=== PATIENT | female | born 1950 | race Caucasian/White ===

== ENCOUNTER → 2018-03-24 | Outpatient (CLI) | payer MEDICARE, OTHER ==
--- NOTE | 2018-03-24 15:59 | CT ---
EXAMINATION TYPE: CT abdomen pelvis wo con DATE OF EXAM: 03/24/2018 COMPARISON: 08/14/2015 HISTORY: Follow up scan CT DLP: 870 mGycm Examination of the solid and hollow viscera is limited given the lack of contrast. FINDINGS: LUNG BASES: No evidence for nodule. No evidence for infiltrate. LIVER/GB: The gallbladder is unremarkable. No space-occupying hepatic lesion. PANCREAS: No pancreatic mass identified. No inflammatory process seen. SPLEEN: No evidence for splenomegaly. No intrasplenic lesions seen. ADRENALS: 2.7 cm left adrenal nodule persists. KIDNEYS: There is evidence of right-sided nephrectomy. There is also cystectomy changes noted. Right lower quadrant ileostomy. Left kidney is free of mass. No hydronephrosis or nephrolithiasis. BOWEL: Appendix has a normal appearance. No evidence of bowel obstruction. No inflammatory process. Lymph nodes: No evidence for adenopathy greater than 1 cm. Abdominal aorta: Atheromatous changes seen. No evidence for aneurysm. Genital organs: No significant abnormality. Other: Fat-containing anterior abdominal wall hernia. IMPRESSION: 1. Post stable postoperative changes of right-sided nephrectomy and cystectomy. No evidence for recur rent or residual mass. 2. Anterior abdominal wall fat-containing hernia is stable. 3. Left adrenal adenoma unchanged.
== END | disposition home or self-care (01) ==
LOC: RADCTMAIN 12:22
PROVIDERS: ATTEND Urology
DX: Z08 Encounter for follow-up examination after completed treatment for malignant neoplasm (principal); D35.02 Benign neoplasm of left adrenal gland; K43.9 Ventral hernia without obstruction or gangrene; Z90.5 Acquired absence of kidney; Z90.89 Acquired absence of other organs; Z90.6 Acquired absence of other parts of urinary tract
CPT/HCPCS: 74176

== ENCOUNTER 2018-07-28 19:58 | Observation (INO) | payer MEDICARE, OTHER ==
[2018-07-28] MEDS ORDERED: IPRATROPIUM-ALBUTEROL 3 ML NEB INHALATION STA ×2 (20:41→22:05)
[2018-07-28] MEDS ORDERED: SODIUM CHLORIDE 0.9% 500 ML 500 ML IV STA (20:41)
[2018-07-28] MEDS ORDERED: SODIUM CHLORIDE 0.9% 1,000 ML IV STA (20:41)
[2018-07-28 21:17] LABS: Basophils % (A) 0 %; Eosinophils # (A) 0.3 k/uL (0-0.7); Eosinophils % (A) 2 %; HCT 41.1 % (34.0-46.0); HGB 13.2 gm/dL (11.4-16.0); Lymphocytes # (A) 1.5 k/uL (1.0-4.8); Lymphocytes % (A) 12 %; MCH 28.7 pg (25.0-35.0); MCHC 32.1 g/dL (31.0-37.0); MCV 89.4 fL (80.0-100.0); Mean Platelet Volume 6.8; Monocytes # (A) 0.9 k/uL (0-1.0); Monocytes % (A) 7 %; Neutrophils # (A) 10.1 k/uL (1.3-7.7); Neutrophils % (A) 78 %; Platelet Count 364 k/uL (150-450); RDW 14.2 % (11.5-15.5); WBC 13.1 k/uL (3.8-10.6)
--- NOTE | 2018-07-28 21:20 | XR ---
EXAMINATION TYPE: XR chest 2V DATE OF EXAM: 07/28/2018 COMPARISON: 03/14/2012 HISTORY: Short of breath and cough TECHNIQUE: Frontal and lateral views of the chest are obtained. FINDINGS: There is no heart failure nor confluent pneumonic infiltrate. Costophrenic angles are corbin r. There are chest leads. Heart size is normal. Bony thorax is intact. IMPRESSION: No active cardiopulmonary disease. No change.
[2018-07-28 21:30] LABS: Calcium 9.6 mg/dL (8.4-10.2); INR 0.8 (<1.2); Magnesium 1.8 mg/dL (1.6-2.3); Partial Thromboplastin Time 25.2 sec (22.0-30.0); Potassium 4.8 mmol/L (3.5-5.1); Prothrombin Time 9.4 sec (9.0-12.0); Total Bilirubin 0.5 mg/dL (0.2-1.3); Total Protein 6.7 g/dL (6.3-8.2)
--- NOTE | 2018-07-28 21:43 | ED ---
URI HPI - General Chief Complaint: Upper Respiratory Infection Stated Complaint: Heart palps Time Seen by Provider: 07/28/18 20:34 Source: patient, RN notes reviewed, old records reviewed Mode of arrival: ambulatory Limitations: no limitations - History of Present Illness Initial Comments: This is a 5-year-old female the ER for evaluation. Patient resents today for evaluation shortness of breath history of smoking and COPD. Patient has had symptoms for a few weeks now. She has had prior evaluation and treatment with no improvement. No travel history no sick contacts no chest pain. Patient occasionally does have palpitations. Significant shortness of breath with exertion. MD Complaint: cough, nasal congestion -: week(s) Severity: moderate Severity scale (1-10): 5 Consistency: constant Improves With: OTC cold medicine Worsens With: activity Context: sick contacts Associated Symptoms: nasal congestion, cough, shortness of breath Treatments Prior to Arrival: none - Related Data Previous Rx's Medication Instructions Recorded Dexamethasone 0.75 mg PO DAILY #12 tablet 12/15/14 Diazepam [Valium] 5 mg PO BID #6 tab 12/15/14 Hydrocodone/Acetaminophen [Snook 1 each PO Q6HR PRN #30 tab 12/15/14 5-325] Allergies Allergy/AdvReac Type Severity Reaction Status Date / Time codeine Allergy Unknown Verified 07/28/18 20:31 Sulfa (Sulfonamide Allergy Unknown Verified 07/28/18 20:31 Antibiotics) Review of Systems ROS Statement: Those systems with pertinent positive or pertinent negative responses have been documented in the HPI. ROS Other: All systems not noted in ROS Statement are negative. Past Medical History Past Medical History: Cancer Additional Past Medical History / Comment(s): bladder cancer, urostomy History of Any Multi-Drug Resistant Organisms: None Reported Past Surgical History: Hysterectomy Additional Past Surgical History / Comment(s): bladder, nephrectomy Past Psychological History: No Psychological Hx Reported Smoking Status: Current every day smoker Past Alcohol Use History: None Reported Past Drug Use History: None Reported General Exam Limitations: no limitations General appearance: alert, in no apparent distress Head exam: Present: atraumatic, normocephalic, normal inspection Eye exam: Present: normal appearance, PERRL, EOMI. Absent: scleral icterus, conjunctival injection, periorbital swelling ENT exam: Present: normal exam, mucous membranes moist Neck exam: Present: normal inspection. Absent: tenderness, meningismus, lymphadenopathy Respiratory exam: Present: normal lung sounds bilaterally, wheezes, accessory muscle use, decreased breath sounds, prolonged expiratory. Absent: respiratory distress, rales, rhonchi, stridor Cardiovascular Exam: Present: regular rate, normal rhythm, normal heart sounds. Absent: systolic murmur, diastolic murmur, rubs, gallop, clicks GI/Abdominal exam: Present: soft, normal bowel sounds. Absent: distended, tenderness, guarding, rebound, rigid Extremities exam: Present: normal inspection, full ROM, normal capillary refill. Absent: tenderness, pedal edema, joint swelling, calf tenderness Back exam: Present: normal inspection Neurological exam: Present: alert, oriented X3, CN II-XII intact Psychiatric exam: Present: normal affect, normal mood Skin exam: Present: warm, dry, intact, normal color. Absent: rash Course Vital Signs 07/28/18 07/28/18 07/28/18 20:27 21:10 21:19 Temperature 98.3 F Pulse Rate 83 77 76 Respiratory 16 Rate Blood Pressure 135/83 O2 Sat by Pulse 98 Oximetry 07/28/18 21:28 Temperature 98.3 F Pulse Rate 78 Respiratory 16 Rate Blood Pressure 162/75 O2 Sat by Pulse 93 L Oximetry - Reevaluation(s) Reevaluation #1: 07/28/18 22:14 Record is reviewed Reevaluation #2: 07/28/18 22:14 Breathing treatment has improved patient symptoms Medical Decision Making - Medical Decision Making 68 female the ER for evaluation, persistent shortness of breath and COPD. Patient given breathing treatments and steroids here in the ER will admit for continued breathing treatments and monitoring of cardiopulmonary status - Lab Data Result diagrams: 07/28/18 21:02 07/28/18 21:02 Lab Results 07/28/18 07/28/18 07/28/18 Range/Units 21:02 21:02 21:02 WBC 13.1 H (3.8-10.6) k/uL RBC 4.60 (3.80-5.40) m/uL Hgb 13.2 (11.4-16.0) gm/dL Hct 41.1 (34.0-46.0) % MCV 89.4 (80.0-100.0) fL MCH 28.7 (25.0-35.0) pg MCHC 32.1 (31.0-37.0) g/dL RDW 14.2 (11.5-15.5) % Plt Count 364 (150-450) k/uL Neutrophils % 78 % Lymphocytes % 12 % Monocytes % 7 % Eosinophils % 2 % Basophils % 0 % Neutrophils # 10.1 H (1.3-7.7) k/uL Lymphocytes # 1.5 (1.0-4.8) k/uL Monocytes # 0.9 (0-1.0) k/uL Eosinophils # 0.3 (0-0.7) k/uL Basophils # 0.0 (0-0.2) k/uL PT (9.0-12.0) sec INR (<1.2) APTT (22.0-30.0) sec Sodium 136 L (137-145) mmol/L Potassium 4.8 (3.5-5.1) mmol/L Chloride 106 (98-107) mmol/L Carbon Dioxide 22 (22-30) mmol/L Anion Gap 8 mmol/L BUN 19 H (7-17) mg/dL Creatinine 1.05 H (0.52-1.04) mg/dL Est GFR (CKD-EPI)AfAm 62 (>60 ml/min/1.73 sqM) Est GFR (CKD-EPI)NonAf 54 (>60 ml/min/1.73 sqM) Glucose 96 (74-99) mg/dL Plasma Lactic Acid Lele (0.7-2.0) mmol/L Calcium 9.6 (8.4-10.2) mg/dL Magnesium 1.8 (1.6-2.3) mg/dL Total Bilirubin 0.5 (0.2-1.3) mg/dL AST 21 (14-36) U/L ALT 16 (9-52) U/L Alkaline Phosphatase 91 (38-126) U/L Troponin I (0.000-0.034) ng/mL NT-Pro-B Natriuret Pep 277 pg/mL Total Protein 6.7 (6.3-8.2) g/dL Albumin 4.0 (3.5-5.0) g/dL 07/28/18 07/28/18 07/28/18 Range/Units 21:02 21:02 21:02 WBC (3.8-10.6) k/uL RBC (3.80-5.40) m/uL Hgb (11.4-16.0) gm/dL Hct (34.0-46.0) % MCV (80.0-100.0) fL MCH (25.0-35.0) pg MCHC (31.0-37.0) g/dL RDW (11.5-15.5) % Plt Count (150-450) k/uL Neutrophils % % Lymphocytes % % Monocytes % % Eosinophils % % Basophils % % Neutrophils # (1.3-7.7) k/uL Lymphocytes # (1.0-4.8) k/uL Monocytes # (0-1.0) k/uL Eosinophils # (0-0.7) k/uL Basophils # (0-0.2) k/uL PT 9.4 (9.0-12.0) sec INR 0.8 (<1.2) APTT 25.2 (22.0-30.0) sec Sodium (137-145) mmol/L Potassium (3.5-5.1) mmol/L Chloride (98-107) mmol/L Carbon Dioxide (22-30) mmol/L Anion Gap mmol/L BUN (7-17) mg/dL Creatinine (0.52-1.04) mg/dL Est GFR (CKD-EPI)AfAm (>60 ml/min/1.73 sqM) Est GFR (CKD-EPI)NonAf (>60 ml/min/1.73 sqM) Glucose (74-99) mg/dL Plasma Lactic Acid Lele 0.7 (0.7-2.0) mmol/L Calcium (8.4-10.2) mg/dL Magnesium (1.6-2.3) mg/dL Total Bilirubin (0.2-1.3) mg/dL AST (14-36) U/L ALT (9-52) U/L Alkaline Phosphatase (38-126) U/L Troponin I <0.012 (0.000-0.034) ng/mL NT-Pro-B Natriuret Pep pg/mL Total Protein (6.3-8.2) g/dL Albumin (3.5-5.0) g/dL - EKG Data -: EKG Interpreted by Me (EKG shows sinus rhythm rate of 76, MT 150, QRS 80, QTC 411) - Radiology Data Radiology results: report reviewed (Chest x-rays negative for acute disease), image reviewed Disposition Clinical Impression: Bronchitis, Acute exacerbation of chronic obstructive pulmonary disease (COPD), Failure of outpatient treatment, Palpitations Disposition: ADMITTED IP TO THIS HOSP Condition: Fair Is patient prescribed a controlled substance at d/c from ED?: No Referrals: Emma Morales MD [Primary Care Provider] - 1-2 days
[2018-07-28] MEDS ORDERED: methylPREDNISolone SOD SUCCI 125 MG/2 ML VIAL IV STA (22:05)
[2018-07-28] MEDS ORDERED: AZITHROMYCIN 500 MG in SODIUM CHLORIDE 0.9% 250 ML IVPB STA (22:12)
[2018-07-28] MEDS ORDERED: NICOTINE 21MG/24HR PATCH TRANSDERM STA (23:03)
[2018-07-29] MEDS: methylPREDNISolone SOD SUCCI 125 MG/2 ML VIAL IV SCH ×3 (03:25→15:24)
[2018-07-29] MEDS ORDERED: ACETAMINOPHEN TAB 500 MG TAB PO STA (06:19)
[2018-07-29] MEDS: IPRATROPIUM-ALBUTEROL 3 ML NEB INHALATION SCH ×4 (07:20→19:35)
[2018-07-29] MEDS: NICOTINE 21MG/24HR PATCH TRANSDERM SCH ×2 (15:24→22:34)
[2018-07-29] MEDS ORDERED: ACETAMINOPHEN TAB 325 MG TAB PO PRN (15:38)
[2018-07-29] MEDS ORDERED: BUTALB/APAP/CAFF 50-325-40MG TAB PO PRN (16:26)
--- NOTE | 2018-07-29 16:32 | P.HPIM ---
History of Present Illness 68-year-old the female came to ER with complaints of sinus congestion headache secondary to sinus congestion cough and hoarseness of voice. Patient has been dealing with these symptoms for a for more than a week was tried on multiple antibiotics including azithromycin which didn't help her was given steroids which didn't help her either. Patient was bit short of breath with expiratory wheezing patient currently does smoke about a pack to pack and half a day. Denied any fever chills at home. Chest x-ray did not show any significant pneumonia. Patient doesn't wear oxygen at home. Was complaining of cough with clear sputum production Review of Systems REVIEW OF SYSTEMS: CONSTITUTIONAL: No fever, no malaise, no fatigue. HEENT: As mentioned in HPI CARDIOVASCULAR: No chest pain, orthopnea, PND, no palpitations, no syncope. PULMONARY:no hemoptysis. GASTROINTESTINAL: No diarrhea, no nausea, no vomiting, no abdominal pain. NEUROLOGICAL: No headaches, no weakness, no numbness. HEMATOLOGICAL: Denies any bleeding or petechiae. GENITOURINARY: Denies any burning micturition, frequency, or urgency. MUSCULOSKELETAL/RHEUMATOLOGICAL: Denies any joint pain, swelling, or any muscle pain. ENDOCRINE: Denies any polyuria or polydipsia. The rest of the 14-point review of systems is negative. Past Medical History Past Medical History: Cancer Additional Past Medical History / Comment(s): bladder cancer, urostomy History of Any Multi-Drug Resistant Organisms: None Reported Past Surgical History: Hysterectomy Additional Past Surgical History / Comment(s): bladder, nephrectomy Past Psychological History: No Psychological Hx Reported Smoking Status: Current every day smoker Past Alcohol Use History: None Reported Past Drug Use History: None Reported Medications and Allergies Home Medications Medication Instructions Recorded Confirmed Type Albuterol Nebulized [Ventolin 2.5 mg INHALATION RT-TID 07/28/18 07/28/18 History Nebulized] Ipratropium Nebulized [Atrovent 0.5 mg INHALATION RT-TID 07/28/18 07/28/18 History Nebulized 0.2 MG/ML] Levofloxacin [Levaquin] 500 mg PO DAILY 07/28/18 07/28/18 History Allergies Allergy/AdvReac Type Severity Reaction Status Date / Time codeine Allergy Unknown Verified 07/28/18 22:27 Sulfa (Sulfonamide Allergy Unknown Verified 07/28/18 22:27 Antibiotics) nitroglycerin AdvReac BP DROPS Verified 07/28/18 22:27 [From Nitrostat] Physical Exam Vitals: Vital Signs Temp Pulse Resp BP Pulse Ox 07/29/18 16:13 84 07/29/18 15:58 80 07/29/18 12:19 92 16 136/69 99 07/29/18 11:34 79 07/29/18 11:23 74 07/29/18 07:31 68 07/29/18 07:23 72 07/29/18 06:30 73 22 159/78 96 07/28/18 23:47 16 140/90 96 07/28/18 23:20 98.5 F 81 16 124/71 95 07/28/18 22:53 78 07/28/18 22:46 74 07/28/18 22:38 73 16 105/77 100 07/28/18 21:28 98.3 F 78 16 162/75 93 L 07/28/18 21:19 76 07/28/18 21:10 77 07/28/18 20:27 98.3 F 83 16 135/83 98 PHYSICAL EXAMINATION: GENERAL: The patient is alert and oriented x3, not in any acute distress. Well developed, well nourished. HEENT: Pupils are round and equally reacting to light. EOMI. she does have pharyngeal erythema sinus tenderness in maxillary ethmoid L sinus areas along with possible laryngitis, unable to appreciate any fluid in the middle ear but may have acute suppurative otitis media as well. CARDIOVASCULAR: S1 and S2 present. No murmurs, rubs, or gallops. PULMONARY: Minimal expiratory wheezing fairly good air entry into bilateral lung kincaid. ABDOMEN: Soft, nontender, nondistended, normoactive bowel sounds. No palpable organomegaly. MUSCULOSKELETAL: No joint swelling or deformity. EXTREMITIES: No cyanosis, clubbing, or pedal edema. NEUROLOGICAL: Gross neurological examination did not reveal any focal deficits. SKIN: No rashes. Results CBC & Chem 7: 07/28/18 21:02 07/28/18 21:02 Labs: Abnormal Lab Results - Last 24 Hours (Table) 07/28/18 07/28/18 Range/Units 21:02 21:02 WBC 13.1 H (3.8-10.6) k/uL Neutrophils # 10.1 H (1.3-7.7) k/uL Sodium 136 L (137-145) mmol/L BUN 19 H (7-17) mg/dL Creatinine 1.05 H (0.52-1.04) mg/dL Assessment and Plan Plan: -COPD with acute exacerbation continue system steroids and inhalation treatments patient was started on ceftriaxone because of severe sinusitis most probably viral since she was having these symptoms for more than a week L Peter started on antibiotics.. -Acute sinusitis with a possible acute suppurative otitis media, pharyngitis and laryngitis: Suspect steroids and antibodies as mentioned above. -Headache secondary to sinusitis and coughing will use Fioricet without codeine for this -Continued nicotine use: Counseling was provided -Patient had renal and bladder cancer presently has ileostomy. And patient relates on glargine GI and DVT prophylaxis
[2018-07-29] MEDS: SODIUM CHLORIDE 0.9% 1,000 ML IV SCH ×2 (17:01→19:21)
[2018-07-29] MEDS: FAMOTIDINE 20 MG TAB PO SCH (20:16)
[2018-07-29 20:52] VITALS: RESP 18
[2018-07-29] MEDS ORDERED: methylPREDNISolone SOD SUCCI 40 MG/ML 1 ML VIAL IV SCH (21:00)
[2018-07-29] MEDS ORDERED: AZITHROMYCIN 500 MG in SODIUM CHLORIDE 0.9% 250 ML IVPB SCH (22:00)
[2018-07-30] MEDS: HEPARIN SODIUM,PORCINE 5,000 UNIT/ML 1 ML VIAL SQ SCH ×3 (00:30→13:06)
[2018-07-30] MEDS: SODIUM CHLORIDE 0.9% 1,000 ML IV SCH (05:03)
[2018-07-30] MEDS: IPRATROPIUM-ALBUTEROL 3 ML NEB INHALATION SCH ×3 (08:07→16:07)
[2018-07-30] MEDS: FAMOTIDINE 20 MG TAB PO SCH (08:30)
[2018-07-30] MEDS ORDERED: CEFDINIR 300 MG CAP PO SCH (09:00)
[2018-07-30] MEDS ORDERED: predniSONE 20 MG TAB PO SCH (09:00)
[2018-07-30 13:35] VITALS: BP 160/76; PULSE 88; TEMP 97.4
--- NOTE | 2018-07-30 14:23 | P.DS ---
Providers Date of admission: 07/28/18 22:05 Attending physician: Niya Doe Primary care physician: Carmen Calderón [facility] Course: 68-year-old the female came to ER with complaints of sinus congestion headache secondary to sinus congestion cough and hoarseness of voice. Patient has been dealing with these symptoms for a for more than a week was tried on multiple antibiotics including azithromycin which didn't help her was given steroids which didn't help her either. Patient was bit short of breath with expiratory wheezing patient currently does smoke about a pack to pack and half a day. Denied any fever chills at home. Chest x-ray did not show any significant pneumonia. Patient doesn't wear oxygen at home. Was complaining of cough with clear sputum production 07/30/2018 Patient is doing much better today patient will be discharged today in stable medical condition to home most important thing that she needs to do is quit smoking about believe that helped her symptomatology is more than antibiotics or steroids. PHYSICAL EXAMINATION: GENERAL: The patient is alert and oriented x3, not in any acute distress. Well developed, well nourished. HEENT: Pupils are round and equally reacting to light. EOMI. No scleral icterus. No conjunctival pallor. Normocephalic, atraumatic. No pharyngeal erythema. No thyromegaly. CARDIOVASCULAR: S1 and S2 present. No murmurs, rubs, or gallops. PULMONARY: Chest is clear to auscultation, no wheezing or crackles. ABDOMEN: Soft, nontender, nondistended, normoactive bowel sounds. No palpable organomegaly. MUSCULOSKELETAL: No joint swelling or deformity. EXTREMITIES: No cyanosis, clubbing, or pedal edema. NEUROLOGICAL: Gross neurological examination did not reveal any focal deficits. SKIN: No rashes. Assessment and Plan Plan: -COPD with acute exacerbation -Acute sinusitis with a possible acute suppurative otitis media, pharyngitis and laryngitis: -Headache secondary to sinusitis and coughing will use Fioricet without codeine for this -Continued nicotine use: Counseling was provided -Patient had renal and bladder cancer presently has ileostomy. Patient Condition at Discharge: Fair Plan - Discharge Summary Discharge Rx Participant: No New Discharge Prescriptions: New Cefuroxime Axetil [Ceftin] 500 mg PO BID 5 Days #10 tab Butalb/APAP/Caff 50-325-40Mg [Fioricet 50-325-40] 1 each PO Q4HR PRN #20 tab PRN Reason: Headache Nicotine 21Mg/24Hr Patch [Habitrol] 1 patch TRANSDERM DAILY #14 patch Famotidine [Pepcid] 20 mg PO DAILY #20 tab predniSONE 10 mg PO DAILY #30 tab Continue Ipratropium Nebulized [Atrovent Nebulized 0.2 MG/ML] 0.5 mg INHALATION RT-TID Albuterol Nebulized [Ventolin Nebulized] 2.5 mg INHALATION RT-TID Discontinued Levofloxacin [Levaquin] 500 mg PO DAILY Discharge Medication List Albuterol Nebulized [Ventolin Nebulized] 2.5 mg INHALATION RT-TID 07/28/18 [History] Ipratropium Nebulized [Atrovent Nebulized 0.2 MG/ML] 0.5 mg INHALATION RT-TID 07/28/18 [History] Butalb/APAP/Caff 50-325-40Mg [Fioricet 50-325-40] 1 each PO Q4HR PRN #20 tab 07/30/18 [Rx] Cefuroxime Axetil [Ceftin] 500 mg PO BID 5 Days #10 tab 07/30/18 [Rx] Famotidine [Pepcid] 20 mg PO DAILY #20 tab 07/30/18 [Rx] Nicotine 21Mg/24Hr Patch [Habitrol] 1 patch TRANSDERM DAILY #14 patch 07/30/18 [Rx] predniSONE 10 mg PO DAILY #30 tab 07/30/18 [Rx] Follow up Appointment(s)/Referral(s): Emma Morales MD [Primary Care Provider] - 3 Days Dann Dunn DO [Doctor of Osteopathic Medicine] - 3 Days
[2018-07-31] MEDS ORDERED: FAMOTIDINE 20 MG TAB PO SCH (09:00)
== END 2018-07-30 16:15 | disposition home or self-care (01) ==
LOC: EC 19:58 → 6PED 22:05 → 3NMEDONC 07-29 01:06
PROVIDERS: ADMIT Hospitalist; ATTEND Hospitalist
DX: J44.1 Chronic obstructive pulmonary disease with (acute) exacerbation (principal); J01.90 Acute sinusitis, unspecified; Z71.6 Tobacco abuse counseling; F17.210 Nicotine dependence, cigarettes, uncomplicated; Z93.2 Ileostomy status; Z85.51 Personal history of malignant neoplasm of bladder; Z90.710 Acquired absence of both cervix and uterus; Z90.5 Acquired absence of kidney; Z85.528 Personal history of other malignant neoplasm of kidney
CPT/HCPCS: 96376; 96361 ×2; 96365; 96366 ×2; 96367; 96375; 99285; 36415; 94640 ×5; 93005; 83880; 80053; 83605; 83735; 84484; 85025; 85610; 85730; 71046; G0378 ×4; S4990 ×2; J2920; J2930 ×2; J0456; J0696; J7512

== ENCOUNTER → 2019-04-03 | Outpatient (CLI) | payer MEDICARE, OTHER ==
--- NOTE | 2019-04-03 15:05 | CT ---
EXAMINATION TYPE: CT abdomen pelvis wo con DATE OF EXAM: 04/03/2019 COMPARISON: 03/24/2018 HISTORY: Bladder cancer. CT DLP: 862 mGycm Examination of the solid and hollow viscera is limited given the lack of contrast. FINDINGS: LUNG BASES: No evidence for nodule. No evidence for infiltrate. LIVER/GB: The gallbladder is unremarkable. No space-occupying hepatic lesion. PANCREAS: No pancreatic mass identified. No inflammatory process seen. SPLEEN: No evidence for splenomegaly. No intrasplenic lesions seen. ADRENALS: Low-attenuation left adrenal nodule is unchanged and measures 2.7 cm. No evidence for thick ening. KIDNEYS: Right-sided nephrectomy change. No evidence for recurrent mass. No evidence for renal mass. No nephrolithiasis. No hydronephrosis. The urinary bladder surgically absent. Right lower quadrant il eal conduit with ileostomy noted. BOWEL: No evidence of bowel obstruction. No inflammatory process. Lymph nodes: No evidence for adenopathy greater than 1 cm. Abdominal aorta: Atheromatous changes seen. No evidence for aneurysm. Genital organs: No significant abnormality. Other: No significant abnormality. IMPRESSION: 1. Stable right-sided nephrectomy change and ileal conduit with ileostomy. 2. Urinary bladder has been surgically removed. 3. No evidence for metastatic disease. 4. Stable left adrenal adenoma.
== END | disposition home or self-care (01) ==
LOC: RADCTMAIN 12:44
PROVIDERS: ATTEND Urology
DX: D35.02 Benign neoplasm of left adrenal gland (principal); Z90.5 Acquired absence of kidney; Z90.6 Acquired absence of other parts of urinary tract; Z85.51 Personal history of malignant neoplasm of bladder
CPT/HCPCS: 74176; Q9967

== ENCOUNTER → 2020-03-25 | Outpatient (CLI) | payer MEDICARE, OTHER ==
--- NOTE | 2020-03-25 16:13 | CT ---
EXAMINATION TYPE: CT abdomen pelvis wo con DATE OF EXAM: 03/25/2020 COMPARISON: 04/03/2019 HISTORY: 69-year-old female R10.31, right Lower quadrant abdominal pain CT DLP: 580.8 mGycm. Automated exposure control for dose reduction was used. TECHNIQUE: Contiguous axial scanning of the abdomen and pelvis without IV contrast. Coronal and sagit violet reconstructions performed. FINDINGS: Heart borderline enlarged without pericardial effusion. Some hazy atelectasis in the visualized lower lungs. 6 mm subpleural pulmonary nodule posterior left base is unchanged. Noncontrast appearance of the liver, gallbladder, right adrenal gland, spleen, and pancreas show no g ross abnormality. The right nephrectomy bed remains clear. Redemonstrated nodule of the left adrenal gland currently measuring 3.1 cm versus 2.8 cm on 04/03/2019 . Attenuation of 14 Hounsfield units just out of the range of a benign lipid rich adrenal adenoma. An adrenal adenoma remains favored. No dilated small bowel, free fluid, or free air. Extra renal pelvis left kidney. There is a right mid abdominal urostomy with ileal conduit. Oral contrast progressed into the distal transverse colon. Scattered mild stool. No pericolonic infla mmatory change. No mesenteric or retroperitoneal lymphadenopathy. Moderate atherosclerotic calcifications infrarenal abdominal aorta and iliac arteries. Bladder is surgically absent. Small pelvic phleboliths. No abnormal fluid collection the pelvis or pe lvic lymphadenopathy. Right paramedian ventral abdominal wall hernias are present along the supraumbilical region. There ar e approximately 3 of these containing omental fat. Superiorly, this measures 4.3 cm wide with a neck measuring 1.1 cm (versus 3.5 cm wide hernia, previously). There may be some mild fat stranding in thi s region now. 2 tiny fatty hernias are present just below, axial image 38 and 40. Refer to sagittal image 58. Bones: Mild degenerative change of the hips. Hypertrophic facet arthropathy mid to lower lumbar spine with grade 1 anterolisthesis at L4-L5. No osseous destructive process. IMPRESSION: 1. Redemonstrated right mid abdominal urostomy with ileal conduit. Status post right nephrectomy and previous bladder removal. 2. Left adrenal mass slightly larger at 3.1 cm versus 2.8 cm on 04/03/2019. A benign adrenal adenoma remains the most likely consideration. Consider a 6-12 month follow up adrenal mass protocol CT to co nfirm. 3. Right paramedian supraumbilical ventral abdominal wall hernias containing omental fat. Approximat sebastien 3 hernias are present, the largest is superior measuring 4.3 cm wide (versus 3.5 cm, previously) with a narrow 1.1 cm neck. There may be minimal fat stranding/inflammation here. Correlate for point tenderness.
== END | disposition home or self-care (01) ==
LOC: RADCTMAIN 12:46
PROVIDERS: ATTEND Urology
DX: K42.9 Umbilical hernia without obstruction or gangrene (principal); Z90.5 Acquired absence of kidney; Z90.6 Acquired absence of other parts of urinary tract; Z98.890 Other specified postprocedural states
CPT/HCPCS: 74176

== ENCOUNTER → 2021-10-12 | Outpatient (CLI) | payer MEDICARE, OTHER ==
[2021-10-12 17:46] LABS: HCT 44.2 % (37.2-46.3); HGB 14.3 g/dL (12.0-15.0); MCH 28.7 pg (27.0-32.0); MCHC 32.4 g/dL (32.0-37.0); MCV 88.6 fL (80.0-97.0); Mean Platelet Volume 10.5 fL (9.5-12.2); NRBC Per 100 WBC 0 /100 WBCS (0.0-0.0); Platelet Count 355 X 10*3/uL (140-440); RBC 4.99 X 10*6/uL (4.10-5.20); RDW 13.6 % (11.5-14.5); WBC 8.05 X 10*3/uL (4.50-10.00)
[2021-10-12 18:22] LABS: African American GFR (CKD) 51.9 (60.0-200.0); Albumin 4.4 g/dL (3.8-4.9); Albumin/Globulin Ratio 1.57 (1.60-3.17); Anion Gap 11.7 mmol/L (10.00-18.00); BUN/Creat Ratio 15.33 Ratio (12.00-20.00); Blood Urea Nitrogen 18.4 mg/dL (9.0-27.0); Calcium 9.8 mg/dL (8.7-10.3); Carbon Dioxide 23.3 mmol/L (20.0-27.5); Globulin 2.8 g/dL (1.6-3.3); Non-African American GFR(CKD) 44.8 (60.0-200.0); Potassium 4.3 mmol/L (3.5-5.5); Total Bilirubin 0.3 mg/dL (0.30-1.20); Total Protein 7.2 g/dL (6.2-8.2)
== END | disposition home or self-care (01) ==
LOC: LABWHC1 12:13
PROVIDERS: ATTEND Internal Medicine
DX: R21 Rash and other nonspecific skin eruption (principal)
CPT/HCPCS: 36415; 80053; 83036; 84443; 85027; 87070; 87205

== ENCOUNTER 2022-03-03 21:31 | Emergency (ER) | payer MEDICARE, OTHER ==
--- NOTE | 2022-03-03 21:50 | ED ---
General Adult HPI - General Chief complaint: Chest Pain Stated complaint: Chest pain/ poss stroke Time Seen by Provider: 03/03/22 21:37 Source: patient Mode of arrival: wheelchair Limitations: no limitations - History of Present Illness Initial comments: Dictation was produced using [employer] dictation software. please excuse any grammatical, word or spelling errors. Chief Complaint: 71-year-old female presents with presyncopal episode History of Present Illness: Patient 71-year-old female she had an episode of presyncope earlier today. She states that she was in her closet looking at shirts all of a sudden she felt like her heart was racing. She states that she had associated symptoms of facial burning diaphoresis and feeling lightheaded. States it lasted for couple minutes then resolved on its own. She had a similar episode 2 weeks ago that she thought was secondary to food poisoning. Patient otherwise feels fine at the bedside. She does not have a history of heart problems. She has history of hypertension. The ROS documented in this emergency department record has been reviewed and confirmed by me. Those systems with pertinent positive or negative responses have been documented in the HPI. All other systems are other negative and/or noncontributory. PHYSICAL EXAM: General Impression: Alert and oriented x3, not in acute distress HEENT: Normocephalic atraumatic, extra-ocular movements intact, pupils equal and reactive to light bilaterally, mucous membranes moist. Cardiovascular: Heart regular rate and rhythm Chest: Able to complete full sentences, no retractions, no tachypnea Abdomen: abdomen soft, non-tender, non-distended, no organomegaly Musculoskeletal: Pulses present and equal in all extremities, no peripheral edema Motor: no focal deficits noted Neurological: CN II-XII grossly intact, no focal motor or sensory deficits noted Skin: Intact with no visualized rashes Psych: Normal affect and mood ED course: 71-year-old female presents emergency department after presyncopal episode. Vital signs upon arrival are within acceptable limits. There is clinical concern that patient had a symptomatic cardiac dysrhythmia. Nursing notes and chart review was performed My EKG interpretation: Ventricular rate 77, sinus rhythm, NV interval 161, QRS 80, QTC 421. No NV prolongation, no QTC prolongation, no ST or T-wave changes noted. Overall, this EKG is unremarkable Critical Care: no Critical Care time: n/a Laboratory evaluation obtained. CBC unremarkable. Metabolic panel is negative. Electrolytes are normal. Oral panel is negative. hospital monitor reviewed during patient's ER observation showing no serious dysrhythmias. She did have some bouts of sinus arrhythmia. Chest x-ray is unremarkable. Patient reevaluated at bedside at 11:35 found to be in stable medical condition. Patient discharged advised follow-up with primary care doctor. - Related Data Home Medications Medication Instructions Recorded Confirmed Aspirin EC [Ecotrin Low Dose] 81 mg PO ONCE PRN 03/03/22 03/03/22 Metoprolol Succinate [Metoprolol 25 mg PO DAILY 03/03/22 03/03/22 Succinate ER] Allergies Allergy/AdvReac Type Severity Reaction Status Date / Time codeine Allergy Unknown Verified 03/03/22 22:41 Sulfa (Sulfonamide Allergy Unknown Verified 03/03/22 22:41 Antibiotics) nitroglycerin AdvReac BP DROPS Verified 03/03/22 22:41 [From Nitrostat] Review of Systems ROS Statement: Those systems with pertinent positive or pertinent negative responses have been documented in the HPI. ROS Other: All systems not noted in ROS Statement are negative. Past Medical History Past Medical History: Cancer, Hypertension, Renal Disease Additional Past Medical History / Comment(s): bladder cancer, urostomy History of Any Multi-Drug Resistant Organisms: None Reported Past Surgical History: Hysterectomy Additional Past Surgical History / Comment(s): bladder, nephrectomy Past Anesthesia/Blood Transfusion Reactions: No Reported Reaction Past Psychological History: No Psychological Hx Reported Smoking Status: Current every day smoker Past Alcohol Use History: None Reported Past Drug Use History: None Reported General Exam Limitations: no limitations Course Vital Signs 03/03/22 03/03/22 21:32 22:37 Temperature 98.5 F Pulse Rate 95 73 Respiratory 16 20 Rate Blood Pressure 189/103 195/86 O2 Sat by Pulse 100 97 Oximetry Medical Decision Making - Lab Data Result diagrams: 03/03/22 22:07 03/03/22 22:07 Lab Results 03/03/22 03/03/22 03/03/22 Range/Units 22:07 22:07 22:07 WBC 10.8 H (3.8-10.6) k/uL RBC 4.73 (3.80-5.40) m/uL Hgb 13.9 (11.4-16.0) gm/dL Hct 40.6 (34.0-46.0) % MCV 85.8 (80.0-100.0) fL MCH 29.3 (25.0-35.0) pg MCHC 34.2 (31.0-37.0) g/dL RDW 14.0 (11.5-15.5) % Plt Count 310 (150-450) k/uL MPV 7.9 Neutrophils % 78 % Lymphocytes % 14 % Monocytes % 5 % Eosinophils % 2 % Basophils % 1 % Neutrophils # 8.4 H (1.3-7.7) k/uL Lymphocytes # 1.5 (1.0-4.8) k/uL Monocytes # 0.5 (0-1.0) k/uL Eosinophils # 0.2 (0-0.7) k/uL Basophils # 0.1 (0-0.2) k/uL Sodium 135 L (137-145) mmol/L Potassium 4.3 (3.5-5.1) mmol/L Chloride 109 H (98-107) mmol/L Carbon Dioxide 20 L (22-30) mmol/L Anion Gap 6 mmol/L BUN 24 H (7-17) mg/dL Creatinine 1.09 H (0.52-1.04) mg/dL Est GFR (CKD-EPI)AfAm 59 (>60 ml/min/1.73 sqM) Est GFR (CKD-EPI)NonAf 51 (>60 ml/min/1.73 sqM) Glucose 108 H (74-99) mg/dL Calcium 9.2 (8.4-10.2) mg/dL Magnesium 1.8 (1.6-2.3) mg/dL Total Bilirubin 0.3 (0.2-1.3) mg/dL AST 25 (14-36) U/L ALT 19 (4-34) U/L Alkaline Phosphatase 109 (38-126) U/L Troponin I <0.012 (0.000-0.034) ng/mL Total Protein 6.6 (6.3-8.2) g/dL Albumin 4.1 (3.5-5.0) g/dL TSH 2.080 (0.465-4.680) mIU/L Influenza Type A (PCR) (Not Detectd) Influenza Type B (PCR) (Not Detectd) RSV (PCR) (Not Detectd) SARS-CoV-2 (PCR) (Not Detectd) 03/03/22 Range/Units 22:07 WBC (3.8-10.6) k/uL RBC (3.80-5.40) m/uL Hgb (11.4-16.0) gm/dL Hct (34.0-46.0) % MCV (80.0-100.0) fL MCH (25.0-35.0) pg MCHC (31.0-37.0) g/dL RDW (11.5-15.5) % Plt Count (150-450) k/uL MPV Neutrophils % % Lymphocytes % % Monocytes % % Eosinophils % % Basophils % % Neutrophils # (1.3-7.7) k/uL Lymphocytes # (1.0-4.8) k/uL Monocytes # (0-1.0) k/uL Eosinophils # (0-0.7) k/uL Basophils # (0-0.2) k/uL Sodium (137-145) mmol/L Potassium (3.5-5.1) mmol/L Chloride (98-107) mmol/L Carbon Dioxide (22-30) mmol/L Anion Gap mmol/L BUN (7-17) mg/dL Creatinine (0.52-1.04) mg/dL Est GFR (CKD-EPI)AfAm (>60 ml/min/1.73 sqM) Est GFR (CKD-EPI)NonAf (>60 ml/min/1.73 sqM) Glucose (74-99) mg/dL Calcium (8.4-10.2) mg/dL Magnesium (1.6-2.3) mg/dL Total Bilirubin (0.2-1.3) mg/dL AST (14-36) U/L ALT (4-34) U/L Alkaline Phosphatase (38-126) U/L Troponin I (0.000-0.034) ng/mL Total Protein (6.3-8.2) g/dL Albumin (3.5-5.0) g/dL TSH (0.465-4.680) mIU/L Influenza Type A (PCR) Not Detected (Not Detectd) Influenza Type B (PCR) Not Detected (Not Detectd) RSV (PCR) Not Detected (Not Detectd) SARS-CoV-2 (PCR) Not Detected (Not Detectd) Disposition Clinical Impression: Pre-syncope Disposition: HOME SELF-CARE Condition: Good Instructions (If sedation given, give patient instructions): Near Syncope (ED) Is patient prescribed a controlled substance at d/c from ED?: No Referrals: Emma Morales MD [Primary Care Provider] - 1-2 days Time of Disposition: 23:42
[2022-03-03 22:14] LABS: Basophils # (A) 0.1 k/uL (0-0.2); Basophils % (A) 1 %; Eosinophils # (A) 0.2 k/uL (0-0.7); Eosinophils % (A) 2 %; HCT 40.6 % (34.0-46.0); HGB 13.9 gm/dL (11.4-16.0); Lymphocytes # (A) 1.5 k/uL (1.0-4.8); Lymphocytes % (A) 14 %; MCH 29.3 pg (25.0-35.0); MCHC 34.2 g/dL (31.0-37.0); MCV 85.8 fL (80.0-100.0); Mean Platelet Volume 7.9; Monocytes # (A) 0.5 k/uL (0-1.0); Monocytes % (A) 5 %; Neutrophils # (A) 8.4 k/uL (1.3-7.7); Neutrophils % (A) 78 %; Platelet Count 310 k/uL (150-450); RBC 4.73 m/uL (3.80-5.40); WBC 10.8 k/uL (3.8-10.6)
[2022-03-03 22:22] LABS: Albumin 4.1 g/dL (3.5-5.0); Calcium 9.2 mg/dL (8.4-10.2); Magnesium 1.8 mg/dL (1.6-2.3); Potassium 4.3 mmol/L (3.5-5.1); Total Bilirubin 0.3 mg/dL (0.2-1.3); Total Protein 6.6 g/dL (6.3-8.2)
--- NOTE | 2022-03-03 23:29 | XR ---
EXAMINATION TYPE: XR chest 2V DATE OF EXAM: 03/03/2022 COMPARISON: 07/28/2018 HISTORY: Syncope TECHNIQUE: 2 views FINDINGS: There is no heart failure nor confluent pneumonic infiltrate. Costophrenic angles are clear bony thorax is intact. IMPRESSION: No active cardiopulmonary disease. Normal heart. No change.
[2022-03-04 00:30] VITALS: BP 195/82; PULSE 70; RESP 16; TEMP 97.3
== END 2022-03-03 23:57 | disposition home or self-care (01) ==
LOC: SUPCPDRO 21:31 → EC 21:31
DX: R55 Syncope and collapse (principal); I10 Essential (primary) hypertension; F17.200 Nicotine dependence, unspecified, uncomplicated; Z79.899 Other long term (current) drug therapy; Z20.822 Contact with and (suspected) exposure to COVID-19; Z79.82 Long term (current) use of aspirin; Z88.2 Allergy status to sulfonamides; Z88.8 Allergy status to other drugs, medicaments and biological substances; Z88.5 Allergy status to narcotic agent
CPT/HCPCS: 36415; 71046; 80053; 83735; 84443; 84484; 85025; 87636; 93005; 99285

== ENCOUNTER 2022-08-21 20:33 | Emergency (ER) | payer MEDICARE, OTHER ==
[2022-08-21 20:39] VITALS: TEMP 98
--- NOTE | 2022-08-21 21:30 | ED ---
Extremity Problem HPI - General Chief complaint: Extremity Problem,Nontraumatic Stated complaint: pain in right leg Time Seen by Provider: 08/21/22 21:05 Source: patient, family Mode of arrival: wheelchair Limitations: no limitations - History of Present Illness Initial comments: This patient is a 72-year-old woman who complains of having burning right leg pain that is worse sometimes after activity. She states she had this going on for months possibly years. She states that recently she had seen her physician who gave her muscle relaxants to treat possible muscle spasm. The patient states she did not notice any benefit from this medication. She is denying change in bladder or bowel function area no saddle anesthesia. She is able to bear weight and has not had any bony trauma. MD Complaint: extremity pain -: month(s) Location: right, lower extremity Radiation: distal Quality: burning Consistency: intermittent Improves with: nothing Worsens with: nothing Associated Symptoms: denies other symptoms - Related Data Home Medications Medication Instructions Recorded Confirmed Aspirin EC [Ecotrin Low Dose] 81 mg PO ONCE PRN 03/03/22 03/03/22 Metoprolol Succinate [Metoprolol 25 mg PO DAILY 03/03/22 03/03/22 Succinate ER] Previous Rx's Medication Instructions Recorded HYDROcodone/APAP 5-325MG [[place] 1 tab PO Q4HR PRN 3 Days #18 tab 08/22/22 5-325] predniSONE 60 mg PO DAILY #30 tab 08/22/22 Allergies Allergy/AdvReac Type Severity Reaction Status Date / Time codeine Allergy Unknown Verified 08/21/22 20:36 Sulfa (Sulfonamide Allergy Unknown Verified 08/21/22 20:36 Antibiotics) nitroglycerin AdvReac BP DROPS Verified 08/21/22 20:36 [From Nitrostat] Review of Systems ROS Statement: Those systems with pertinent positive or pertinent negative responses have been documented in the HPI. ROS Other: All systems not noted in ROS Statement are negative. Constitutional: Denies: fever, chills Respiratory: Denies: cough Cardiovascular: Denies: chest pain, palpitations Gastrointestinal: Denies: abdominal pain, vomiting, diarrhea Genitourinary: Denies: dysuria, frequency, hematuria Musculoskeletal: Reports: as per HPI. Denies: back pain Skin: Denies: rash, lesions Neurological: Denies: headache, weakness, numbness Past Medical History Past Medical History: Cancer, Hypertension, Renal Disease Additional Past Medical History / Comment(s): bladder cancer, urostomy, covid History of Any Multi-Drug Resistant Organisms: None Reported Past Surgical History: Hysterectomy Additional Past Surgical History / Comment(s): bladder, nephrectomy Past Anesthesia/Blood Transfusion Reactions: No Reported Reaction Past Psychological History: No Psychological Hx Reported Smoking Status: Current every day smoker Past Alcohol Use History: None Reported Past Drug Use History: None Reported General Exam Limitations: no limitations General appearance: alert, in no apparent distress Head exam: Present: atraumatic, normocephalic Eye exam: Present: normal appearance. Absent: scleral icterus, conjunctival injection Neck exam: Present: normal inspection Respiratory exam: Present: normal lung sounds bilaterally. Absent: respiratory distress, wheezes, rales, rhonchi, stridor Cardiovascular Exam: Present: regular rate, normal rhythm, normal heart sounds. Absent: systolic murmur, diastolic murmur, rubs, gallop GI/Abdominal exam: Present: soft. Absent: distended, tenderness, guarding, rebound, rigid, mass, pulsatile mass Extremities exam: Present: normal inspection, normal capillary refill. Absent: pedal edema, calf tenderness Back exam: Present: normal inspection, other (Ur is pain with straight leg raise above 30 on the right side). Absent: CVA tenderness (R), CVA tenderness (L), paraspinal tenderness, vertebral tenderness Neurological exam: Present: alert Skin exam: Present: warm, dry, intact, normal color. Absent: rash Course Vital Signs 08/21/22 08/21/22 08/21/22 20:36 21:39 22:00 Temperature 98 F Pulse Rate 94 73 72 Respiratory 18 24 Rate Blood Pressure 192/88 213/98 202/98 O2 Sat by Pulse 98 94 L Oximetry 08/21/22 08/21/22 08/22/22 22:45 23:46 00:56 Temperature Pulse Rate 67 61 60 Respiratory 20 16 20 Rate Blood Pressure 179/89 171/74 188/77 O2 Sat by Pulse 97 92 L 96 Oximetry Medical Decision Making - Medical Decision Making This patient is 72-year-old woman here to have evaluation of leg pain. Clinically, patient appears to have symptoms suggestive of radiculopathy, though peripheral vascular occlusion/claudication may be contributing. There are no red flag signs or symptoms. The patient's workup reveals normal CRP. She is given medication which did give decent relief of symptoms and we discussed further care and follow-up as well as return parameters. Was pt. sent in by a medical professional or institution (MAHIN Cotter, INK PRINTER, urgent care, hospital, or long-term...) When possible be specific @ -[No] Did you speak to anyone other than the patient for history (EMS, parent, family, police, friend...)? What history was obtained from this source @ -[No] Did you review nursing and triage notes (agree or disagree)? Why? @ -[I reviewed and agree with nursing and triage notes] Were old charts reviewed (outside hosp., previous admission, EMS record, old EKG, old radiological studies, urgent care reports/EKG's, long-term records)? Report findings @ -[No old charts were reviewed] Differential Diagnosis (chest pain, altered mental status, abdominal pain women, abdominal pain men, vaginal bleeding, weakness, fever, dyspnea, syncope, headache, dizziness, GI bleed, back pain, seizure, CVA, palpatations, mental health, musculoskeletal)? @ -[Differential Musculoskeletal Muscular strain, contusion, ligament sprain, fracture, arthritis, septic arthritis, bursitis, cellulitis, muscle spasm, nerve compression, DVT, arterial occlusion, herpes zoster, electrolyte abnormality, tumor.... This is not meant to be in all inclusive list EKG interpreted by me (3pts min.). @ -[As above] X-rays interpreted by me (1pt min.). @ -[None done] CT interpreted by me (1pt min.). @ -[None done] U/S interpreted by me (1pt. min.). @ -[None done] What testing was considered but not performed or refused? (CT, X-rays, U/S, labs)? Why? @ -[None] What meds were considered but not given or refused? Why? @ -[None] Did you discuss the management of the patient with other professionals (professionals i.e. MAHIN Cotter, INK PRINTER, lab, RT, psych nurse, social security benefits interviewer, insurance coordinator, teacher, aircraft electronics technical officer, pillowcase turner)? Give summary @ -[No] Was smoking cessation discussed for >3mins.? @ -[No] Was critical care preformed (if so, how long)? @ -[No] Were there social determinants of health that impacted care today? How? (Homelessness, low income, unemployed, alcoholism, drug addiction, transportation, low edu. Level, literacy, decrease access to med. care, prison, rehab)? @ -[No] Was there de-escalation of care discussed even if they declined (Discuss DNR or withdrawal of care, Hospice)? DNR status @ -[No] What co-morbidities impacted this encounter? (DM, HTN, Smoking, COPD, CAD, Cancer, CVA, ARF, Chemo, Hep., AIDS, mental health diagnosis, sleep apnea, morbid obesity)? @ -[None] Was patient admitted / discharged? Hospital course, mention meds given and route, prescriptions, significant lab abnormalities, going to OR and other pertinent info. @ -[The patient's symptoms are improved, she'll be discharged with close follow-up. His recommend she see Dr. osorio related to possible radiculopathy, and if that is unremarkable then Dr. Verdugo for possibility of peripheral vascular occlusive disease. Strict parameters discussed for return Undiagnosed new problem with uncertain prognosis? @ -[No] Drug Therapy requiring intensive monitoring for toxicity (Heparin, Nitro, Insulin, Cardizem)? @ -[No] Were any procedures done? @ -[No] Diagnosis/symptom? @ -[Acute leg pain Acute, or Chronic, or Acute on Chronic? @ -[Acute Uncomplicated (without systemic symptoms) or Complicated (systemic symptoms)? @ -[Uncomplicated Side effects of treatment? @ -[No] Exacerbation, Progression, or Severe Exacerbation? @ -[No] Poses a threat to life or bodily function? How? (Chest pain, [place], [place], pneumonia, PE, COPD, DKA, ARF, appy, cholecystitis, CVA, Diverticulitis, Homicidal, Suicidal, threat to staff... and all critical care pts) @ -[No] - Lab Data Result diagrams: 08/21/22 21:54 08/21/22 21:54 Lab Results 08/21/22 08/21/22 08/21/22 Range/Units 21:54 21:54 21:54 WBC 10.9 H (3.8-10.6) k/uL RBC 5.02 (3.80-5.40) m/uL Hgb 14.6 (11.4-16.0) gm/dL Hct 43.7 (34.0-46.0) % MCV 87.0 (80.0-100.0) fL MCH 29.0 (25.0-35.0) pg MCHC 33.4 (31.0-37.0) g/dL RDW 13.5 (11.5-15.5) % Plt Count 358 (150-450) k/uL MPV 8.0 Neutrophils % 73 % Lymphocytes % 15 % Monocytes % 8 % Eosinophils % 2 % Basophils % 0 % Neutrophils # 7.9 H (1.3-7.7) k/uL Lymphocytes # 1.6 (1.0-4.8) k/uL Monocytes # 0.9 (0-1.0) k/uL Eosinophils # 0.2 (0-0.7) k/uL Basophils # 0.0 (0-0.2) k/uL Sodium 137 (137-145) mmol/L Potassium 3.8 (3.5-5.1) mmol/L Chloride 104 (98-107) mmol/L Carbon Dioxide 24 (22-30) mmol/L Anion Gap 9 mmol/L BUN 25 H (7-17) mg/dL Creatinine 1.05 H (0.52-1.04) mg/dL Est GFR (CKD-EPI)AfAm 60 (>60 ml/min/1.73 sqM) Est GFR (CKD-EPI)NonAf 52 (>60 ml/min/1.73 sqM) Glucose 105 H (74-99) mg/dL Plasma Lactic Acid Lele 0.7 (0.7-2.0) mmol/L Calcium 9.3 (8.4-10.2) mg/dL C-Reactive Protein 0.7 (<1.0) mg/dL Disposition Clinical Impression: Leg pain Disposition: HOME SELF-CARE Condition: Good Instructions (If sedation given, give patient instructions): Leg Pain (ED) Prescriptions: HYDROcodone/APAP 5-325MG [[place] 5-325] 1 tab PO Q4HR PRN 3 Days #18 tab PRN Reason: Pain predniSONE 60 mg PO DAILY #30 tab Is patient prescribed a controlled substance at d/c from ED?: No Referrals: Emma Morales MD [Primary Care Provider] - 1-2 days Tito Hadley DO [Doctor of Osteopathic Medicine] - 1-2 days Jun Ornelas DO [Doctor of Osteopathic Medicine] - 1-2 days
[2022-08-21] MEDS ORDERED: METOPROLOL TARTRATE 50 MG TAB PO STA (21:36)
[2022-08-21] MEDS ORDERED: KETOROLAC 15 MG/ML 1 ML VIAL IVP STA (21:36)
[2022-08-21 22:11] LABS: Basophils % (A) 0 %; Eosinophils # (A) 0.2 k/uL (0-0.7); Eosinophils % (A) 2 %; HCT 43.7 % (34.0-46.0); HGB 14.6 gm/dL (11.4-16.0); Lymphocytes # (A) 1.6 k/uL (1.0-4.8); Lymphocytes % (A) 15 %; MCHC 33.4 g/dL (31.0-37.0); Monocytes # (A) 0.9 k/uL (0-1.0); Monocytes % (A) 8 %; Neutrophils # (A) 7.9 k/uL (1.3-7.7); Neutrophils % (A) 73 %; Platelet Count 358 k/uL (150-450); RBC 5.02 m/uL (3.80-5.40); RDW 13.5 % (11.5-15.5); WBC 10.9 k/uL (3.8-10.6)
[2022-08-21 22:13] LABS: Calcium 9.3 mg/dL (8.4-10.2); Potassium 3.8 mmol/L (3.5-5.1)
[2022-08-21 22:35] LABS: C Reactive Protein 0.7 mg/dL (<1.0)
[2022-08-22] MEDS ORDERED: predniSONE 20 MG TAB PO STA (00:52)
[2022-08-22 00:57] VITALS: BP 188/77; PULSE 60; RESP 20
[2022-08-22] MEDS ORDERED: HYDROcodone/APAP 5-325MG 1 EACH TAB PO STA (01:02)
== END 2022-08-22 01:37 | disposition home or self-care (01) ==
LOC: EC 20:33
DX: M79.604 Pain in right leg (principal); I10 Essential (primary) hypertension; F17.200 Nicotine dependence, unspecified, uncomplicated; Z79.82 Long term (current) use of aspirin; Z79.899 Other long term (current) drug therapy; Z88.2 Allergy status to sulfonamides; Z88.5 Allergy status to narcotic agent; Z88.8 Allergy status to other drugs, medicaments and biological substances; Z86.16 Personal history of COVID-19
CPT/HCPCS: 99284; 96374; 36415; 80048; 83605; 85025; 86140; J1885; J7512

== ENCOUNTER → 2023-06-10 | Outpatient (CLI) | payer MEDICARE, OTHER ==
[2023-06-10 11:47] LABS: Basophils # (A) 0.05 X 10*3/uL (0.00-0.10); Basophils % (A) 0.7 %; Eosinophils # (A) 0.24 X 10*3/uL (0.04-0.35); Eosinophils % (A) 3.3 %; HCT 39.1 % (37.2-46.3); HGB 12.9 g/dL (12.0-15.0); Lymphocytes # (A) 1.81 X 10*3/uL (0.90-5.00); Lymphocytes % (A) 24.6 %; MCH 29.3 pg (27.0-32.0); MCV 88.9 FL (80.0-97.0); Monocytes # (A) 0.81 X 10*3/uL (0.20-1.00); NRBC Per 100 WBC 0 X 10*3/uL (0.00-0.01); Neutrophils # (A) 4.43 X 10*3/uL (1.80-7.70); Neutrophils % (A) 60.1 %; Platelet Count 366 X 10*3/uL (140-440); RDW 13.3 % (11.5-14.5); WBC 7.36 X 10*3/uL (4.50-10.00)
[2023-06-10 12:27] LABS: ALT 8 U/L (8-44); AST 12 U/L (13-35); Albumin 4.2 g/dL (3.8-4.9); Albumin/Globulin Ratio 1.83 Ratio (1.60-3.17); Alkaline Phosphatase 109 U/L (41-126); BUN/Creat Ratio 13.31 Ratio (12.00-20.00); Blood Urea Nitrogen 17.3 mg/dL (9.0-27.0); Calcium 9.6 mg/dL (8.7-10.3); Carbon Dioxide 22.2 mmol/L (21.6-31.8); Chloride 101 mmol/L (96-109); Chol/HDL Ratio 4.31 Ratio; Globulin 2.3 g/dL (1.6-3.3); Glucose 100 mg/dL (70-110); LDL Cholesterol,Calculated 129.1 mg/dL (0.0-131.0); Potassium 4.4 mmol/L (3.5-5.5); Sodium 134 mmol/L (135-145); T4, Free (Free Thyroxine) 1.29 ng/dL (0.80-1.80); Total Bilirubin 0.3 mg/dL (0.3-1.2); Total Protein 6.5 g/dL (6.2-8.2); Uric Acid 4.2 mg/dL (2.9-7.7)
== END | disposition home or self-care (01) ==
LOC: LABWHC1 08:15
PROVIDERS: ATTEND Family Medicine
DX: Z00.00 Encounter for general adult medical examination without abnormal findings (principal); Z13.220 Encounter for screening for lipoid disorders; E55.9 Vitamin D deficiency, unspecified; E78.5 Hyperlipidemia, unspecified; R53.83 Other fatigue
CPT/HCPCS: 36415; 80053; 80061; 82306; 84439; 84443; 84550; 85025

== ENCOUNTER → 2024-07-02 | Outpatient (CLI) | payer MEDICARE, OTHER ==
[2024-07-02 15:19] LABS: Basophils # (A) 0.04 X 10*3/uL (0.00-0.10); Basophils % (A) 0.5 %; Eosinophils # (A) 0.34 X 10*3/uL (0.04-0.35); Eosinophils % (A) 4.5 %; HCT 33.8 % (37.2-46.3); HGB 10.3 g/dL (12.0-15.0); Lymphocytes # (A) 1.13 X 10*3/uL (0.90-5.00); Lymphocytes % (A) 14.9 %; MCH 25.1 pg (27.0-32.0); MCHC 30.5 g/dL (32.0-37.0); MCV 82.4 FL (80.0-97.0); Mean Platelet Volume 10.5 FL (9.5-12.2); Monocytes # (A) 0.95 X 10*3/uL (0.20-1.00); Monocytes % (A) 12.5 %; NRBC Per 100 WBC 0 X 10*3/uL (0.00-0.01); Neutrophils # (A) 5.11 X 10*3/uL (1.80-7.70); Neutrophils % (A) 67.2 %; Platelet Count 450 X 10*3/uL (140-440); RDW 16.1 % (11.5-14.5)
[2024-07-02 16:02] LABS: ALT 9 U/L (8-44); AST 16 U/L (13-35); Albumin 3.9 g/dL (3.8-4.9); Albumin/Globulin Ratio 1.62 Ratio (1.60-3.17); Alkaline Phosphatase 121 U/L (41-126); BUN/Creat Ratio 13.88 Ratio (12.00-20.00); Blood Urea Nitrogen 22.2 mg/dL (9.0-27.0); Calcium 9.4 mg/dL (8.7-10.3); Chloride 103 mmol/L (96-109); Chol/HDL Ratio 2.95 Ratio; Globulin 2.4 g/dL (1.6-3.3); Glucose 103 mg/dL (70-110); LDL Cholesterol,Calculated 73.2 mg/dL (0.0-131.0); Potassium 4.6 mmol/L (3.5-5.5); Sodium 136 mmol/L (135-145); T4, Free (Free Thyroxine) 1.14 ng/dL (0.80-1.80); Total Bilirubin 0.2 mg/dL (0.3-1.2); Total Protein 6.3 g/dL (6.2-8.2); Uric Acid 5.6 mg/dL (2.9-7.7)
== END | disposition home or self-care (01) ==
LOC: LABWHC1 10:51
PROVIDERS: ATTEND Family Medicine
DX: Z00.00 Encounter for general adult medical examination without abnormal findings (principal); Z13.220 Encounter for screening for lipoid disorders; E55.9 Vitamin D deficiency, unspecified; E78.5 Hyperlipidemia, unspecified; R53.83 Other fatigue
CPT/HCPCS: 36415; 80053; 80061; 82306; 84439; 84443; 84550; 85025